=== PATIENT | male | born 1950 | race Two or more races ===

== ENCOUNTER → 2018-09-06 12:19 | Outpatient (CLI) | payer MEDICARE, MEDICAID, SELFPAY | PROVIDERS: Referring Provider Dermatology; Visit Provider Dermatology | DX: L02.426 Furuncle of left lower limb (principal); L02.425 Furuncle of right lower limb; L02.222 Furuncle of back [any part, except buttock and flank]; L02.223 Furuncle of chest wall; L70.2 Acne varioliformis; L20.84 Intrinsic (allergic) eczema | CPT/HCPCS: 87070; 87186; 87205 ==

== ENCOUNTER → 2019-01-21 17:59 | Outpatient (CLI) | payer MEDICARE, SELFPAY | PROVIDERS: Referring Provider Dermatology; Visit Provider Dermatology | DX: L02.821 Furuncle of head [any part, except face] (principal); L02.12 Furuncle of neck; L02.223 Furuncle of chest wall; L70.2 Acne varioliformis; L02.416 Cutaneous abscess of left lower limb; L57.0 Actinic keratosis | CPT/HCPCS: 87070; 87077; 87186; 87205 ==